=== PATIENT | female | born 1945 | race American Indian/Alaskan Native ===

== ENCOUNTER 2017-03-24 11:15 | Inpatient (IN) | payer MEDICARE ==
[2017-03-24] MEDS ORDERED: UNASYN/NS 3 GM/100 ML 3 GM/100 ML BAG IV ONE (12:10)
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
--- NOTE | 2017-03-24 12:41 | Admit Criteria Form ---
Admission Criteria Documentation: CELLULITIS Clinical Indications for Admission to Inpatient Care (Place 'X' for any and all applicable criteria): Admission is indicated for ANY ONE of the following(1)(2)(3)(4)(5): [ ]I. Limb-threatening infection [ ]II. High-risk comorbid condition as indicated by ANY ONE of the following: [ ]a) Uncontrolled diabetes (eg, HbA1c greater than 10% (0.1)) [ ]b) Cirrhosis [ ]c) Neutropenia [ ]d) Asplenia [ ]e) Immunosuppression [ ]f) Symptomatic heart failure [ ]III. Failure of outpatient therapy as indicated by ALL of the following: [ ]a) Progression or no improvement after adequate trial (minimum of 48 hours, with longer period for stable lower extremity infection) [ ]b) Adequate antibiotic regimen as indicated by use of ANY ONE of the following: [ ]i) First-generation cephalosporin (e.g., cephalexin) [ ]ii) Antistaphylococcal penicillin (e.g., dicloxacillin) [ ]iii) Penicillin-allergic patient regimen (clindamycin, extended-spectrum fluoroquinolone, or doxycycline) [ ]iv) Resistant organism (eg, methicillin-resistant Staphylococcus aureus) regimen (6) [ ]c) Outpatient intravenous therapy regimen is not appropriate due to ANY ONE of the following. (7)(8)(9)(10): [ ]i) It was tried and was not successful (eg, progression of infection). [ ]ii) It is not available or cannot be arranged in a clinically appropriate time frame (e.g., the next day). [ ]iii) Clinical presentation (eg, acuity of infection, rapidity of progression, confirmed or suspected bacteremia) is judged to require ALL of the following: [ ]1) Immediate initiation of intravenous therapy ( eg, cannot wait for next day) [ ]2) Intensity of patient monitoring and observation (eg, vital sign measurement, checks for infection progression) that cannot be provided at other than inpatient level of care [ ]IV. Mental status changes [ ]V. Bacteremia [ ]. Hemodynamic instability [ ]VII. Suspected necrotizing soft tissue infection (e.g., gas in tissue)(11)( 12) [ ]VIII. Orbital infection (13)(14) [ ]IX. Associated surgical procedure (e.g., abscess drainage, debridement) not amenable to outpatient, emergency department, or observation care [ ]X. Cutaneous gangrene [ ]XI. High fever (temperature greater than 39.5 degrees C (103.1 degrees F) (oral)) not responsive to outpatient, emergency department, or observation care therapy [X ]XIII. Inpatient admission required rather than observation care (Also use Cellulitis: Observation Care as appropriate) because of ANY ONE of the following : [ ]a) Periorbital or perineal infection that is severe or worsening [ ]b) Severe pain requiring acute inpatient management [ ]c) IV fluid to replace significant ongoing (e.g., for over 24 hours) losses (greater than 3L/m2 per day) [ ]d) Compartment syndrome monitoring (17) [ ]e) Strict or protective (eg, laminar flow) isolation [ ]f) Urgent debridement or skin grafting [ ]g) Bone or joint debridement [ ]h) Immediate inpatient surgery [X ]i) Other condition, treatment or monitoring requiring inpatient admission Extended stay beyond goal length of stay may be needed for (1)(18): [ ]a) Necrotizing soft tissue infection or fasciitis [ ]b) Gram-negative infection [ ]c) Methicillin-resistant Staphylococcal aureus (MRSA) infection [ ]d) Peripheral venous insufficiency with cellulitis [ ]e) Extensive edema [ ]f) Sepsis or continued Hemodynamic instability [ ]g) Continued high fever or mental status change [ ]h) Bacteremia [ ]i) Active serious comorbid conditions ( eg, heart failure, renal insufficiency) The original [facility] content created by [employer] has been revised. The portions of the content which have been revised are identified through the use of italic text or in bold, and [facility] has neither reviewed nor approved the modified material. All other unmodified content is copyright [facility] [employer] Please see references footnoted in the original [facility] [employer] edition 2016 Admission Criteria Met: Yes
[2017-03-24 14:19] LABS: Alanine Aminotransferase 9 units/L (7-56); Albumin 2.9 g/dL (3.9-5); Albumin/Globulin Ratio 0.5 %; Alkaline Phosphatase 133 units/L (35-129); Anion Gap 21 mmol/L; BUN/Creatinine Ratio 13.75; Blood Urea Nitrogen 11 mg/dL (7-17); Calcium 9.4 mg/dL (8.4-10.2); Carbon Dioxide 21 mmol/L (22-30); Chloride 104.7 mmol/L (98-107); Glucose 123 mg/dL (65-100); Potassium 4.4 mmol/L (3.6-5.0); Sodium 142 mmol/L (137-145); Total Protein 8.2 g/dL (6.3-8.2)
[2017-03-24 14:46] LABS: Hemoglobin 11.3 gm/dl (10.1-14.3); Mean Corpuscular HGB Conc 31 % (30-34); Mean Corpuscular Volume 82 fl (79-97); Platelet Count 260 K/mm3 (140-440); Red Blood Count 4.37 M/mm3 (3.65-5.03); Red Cell Distribution Width 15.8 % (13.2-15.2); White Blood Count 7.1 K/mm3 (4.5-11.0)
[2017-03-24 14:50] LABS: Mean Corpuscular Hemoglobin 26 pg (28-32)
[2017-03-24] MEDS ORDERED: MORPHINE IV ONE (14:53)
--- NOTE | 2017-03-24 15:38 | History and Physical Report ---
History of Present Illness Date of examination: 03/24/17 Date of admission: 03/24/17 15:09 Chief complaint: Right Leg wounds and pain History of present illness: 71-year-old [place] female sent to the ED via EMS from home with complaint of right leg pain due to an open wound located on the inner leg below the knee, from chronic cellulitis and lymphedema. Pt is morbidly obese and stated, she does not ambulate but uses a bedside commode. Patient's past medical history hypertension, chronic bilateral lower extremeties cellulitis & lymphedema, osteoarthritis, cardiac arrest 2012, hysterectomy 1974. Patient denies shortness of breath, dizziness, chest pain, fever, chills, nausea, and vomiting. Past History Past Medical History: acute SC, hypertension, other (Osteoarthritis, Chronic bilateral lower extremeties cellulitis and black hyperkeratosis) Past Surgical History: hysterectomy (1974) Social history: denies: smoking, alcohol abuse, prescription drug abuse Medications and Allergies Allergies Allergy/AdvReac Type Severity Reaction Status Date / Time amlodipine besylate Allergy Shortness Verified 03/24/17 11:47 [From Norvasc] of Breath aspirin Allergy Hives Verified 03/24/17 11:47 atenolol Allergy Shortness Verified 03/24/17 11:47 of Breath atorvastatin calcium Allergy Unknown Verified 03/24/17 11:47 [From Lipitor] azithromycin Allergy Unknown Verified 03/24/17 11:45 bee venom (honey bee) Allergy Anaphylaxis Verified 03/24/17 11:45 ceftriaxone Allergy Unknown Verified 03/24/17 11:45 cephalexin monohydrate Allergy Unknown Verified 03/24/17 11:45 [From Keflex] doxycycline monohydrate Allergy Unknown Verified 03/24/17 11:45 [From Monodox] esomeprazole magnesium Allergy Unknown Verified 03/24/17 11:49 [From Nexium] ibuprofen Allergy Swelling Verified 03/24/17 11:45 latex Allergy Swelling Verified 03/24/17 11:49 levofloxacin [From Levaquin] Allergy Swelling Verified 03/24/17 11:49 lidocaine Allergy Shortness Verified 03/24/17 11:49 of Breath lisinopril Allergy Angioedema Verified 03/24/17 11:47 losartan Allergy Unknown Verified 03/24/17 11:49 metronidazole Allergy Unknown Verified 03/24/17 11:45 moxifloxacin Allergy Unknown Verified 03/24/17 11:45 sulfamethoxazole Allergy BLISTERS Verified 03/24/17 11:47 [From Bactrim] SKIN trimethoprim [From Bactrim] Allergy BLISTERS Verified 03/24/17 11:47 SKIN metformin AdvReac Nausea Verified 03/24/17 11:49 vancomycin AdvReac BLISTERS Verified 03/24/17 11:45 SKIN Home Medications Medication Instructions Recorded Confirmed Last Taken Type Furosemide [Lasix TAB] 40 mg PO QDAY 03/24/17 03/24/17 03/23/17 History Metoprolol [Lopressor] 25 mg PO DAILY 03/24/17 03/24/17 03/24/17 History Ranitidine HCl [Zantac 150 MG TAB] 150 mg PO PRN PRN 03/24/17 03/24/17 Unknown History cloNIDine [Catapres] 0.2 mg PO BID 03/24/17 03/24/17 03/24/17 History oxyCODONE /ACETAMINOPHEN [Percocet 5 - 325 mg PO Q6HR PRN 03/24/17 03/24/1712/09 History 5/325] Review of Systems Constitutional: fever, chills, lethargy Ears, nose, mouth and throat: no nasal congestion, no sinus pressure, no headache Breasts: normal Cardiovascular: no palpitations, no edema, no syncope Gastrointestinal: no abdominal pain, no nausea, no vomiting, no diarrhea, no constipation Genitourinary Female: no dyspareunia, no dysmenorrhea, no stress incontinence Rectal: no incontinence Musculoskeletal: gait dysfunction Integumentary: wounds, darkening of skin, depigmentation, dryness, color changes Neurological: no head injury, no headaches Psychiatric: no anxiety, no sleep disturbances, no paranoia Endocrine: no fatigue Exam - Constitutional Vitals: Temp Pulse Resp BP Pulse Ox 98 F 57 L 18 146/74 95 03/24/17 12:17 03/24/17 12:17 03/24/17 12:17 03/24/17 12:17 03/24/17 12:17 General appearance: Present: no acute distress - EENT Eyes: Present: PERRL ENT: hearing intact, clear oral mucosa - Neck Neck: Present: supple, normal ROM - Respiratory Respiratory effort: normal Respiratory: bilateral: CTA - Cardiovascular Heart Sounds: Present: S1 & S2 - Integumentary Integumentary: Present: warm, dry Body Four View: 1 - From anterior knee down to metatarsals, black hyperkeratosis with open statis wound on the inner leg below the knee measured 3cm x2 cm x 2 depth 2 - From anterior knee down to metatarsals, black leathery hyperkeratosis of the skin 3 - Perforated wound 3x2x2 cm with minimal drainage - Musculoskeletal Musculoskeletal: strength equal bilaterally, other (Bilateral lower extremeties weakness present skin condition) - Psychiatric Psychiatric: intact judgment & insight - Neurologic Neurologic: CNII-XII intact - Allied Health Allied health notes reviewed: nursing, case management Results - Labs CBC & Chem 7: 03/24/17 14:34 03/24/17 12:10 Labs: Laboratory Last Values WBC 7.1 K/mm3 (4.5-11.0) 03/24/17 14:34 RBC 4.37 M/mm3 (3.65-5.03) 03/24/17 14:34 Hgb 11.3 gm/dl (10.1-14.3) 03/24/17 14:34 Hct 36.0 % (30.3-42.9) 03/24/17 14:34 MCV 82 fl (79-97) 03/24/17 14:34 MCH 26 pg (28-32) L 03/24/17 14:34 MCHC 31 % (30-34) 03/24/17 14:34 RDW 15.8 % (13.2-15.2) H 03/24/17 14:34 Plt Count 260 K/mm3 (140-440) 03/24/17 14:34 Lymph % (Auto) [employer] 03/24/17 14:34 [place] % (Auto) [employer]per 03/24/17 14:34 Eos % (Auto) [employer]per 03/24/17 14:34 Baso % (Auto) [employer]per 03/24/17 14:34 Lymph # [employer] 03/24/17 14:34 [place] # [employer] 03/24/17 14:34 Eos # [employer]per 03/24/17 14:34 Baso # [employer]per 03/24/17 14:34 Seg Neutrophils % [employer] 03/24/17 14:34 Seg Neutrophils # [employer]per 03/24/17 14:34 Sodium 142 mmol/L (137-145) 03/24/17 12:10 Potassium 4.4 mmol/L (3.6-5.0) 03/24/17 12:10 Chloride 104.7 mmol/L (98-107) 03/24/17 12:10 Carbon Dioxide 21 mmol/L (22-30) L 03/24/17 12:10 Anion Gap 21 mmol/L 03/24/17 12:10 BUN 11 mg/dL (7-17) 03/24/17 12:10 Creatinine 0.8 mg/dL (0.7-1.2) 03/24/17 12:10 Estimated GFR > 60 ml/min 03/24/17 12:10 BUN/Creatinine Ratio 13.75 % 03/24/17 12:10 Glucose 123 mg/dL (65-100) H 03/24/17 12:10 Calcium 9.4 mg/dL (8.4-10.2) 03/24/17 12:10 Total Bilirubin 0.40 mg/dL (0.1-1.2) 03/24/17 12:10 AST 14 units/L (5-40) 03/24/17 12:10 ALT 9 units/L (7-56) 03/24/17 12:10 Alkaline Phosphatase 133 units/L (35-129) H 03/24/17 12:10 Total Protein 8.2 g/dL (6.3-8.2) 03/24/17 12:10 Albumin 2.9 g/dL (3.9-5) L 03/24/17 12:10 Albumin/Globulin Ratio 0.5 % 03/24/17 12:10 Assessment and Plan Assessment and plan: 71-year-old [place] female sent to the ED via EMS from home with complaint of right leg pain due to statis open wound located on the inner leg below the knee, from chronic cellulitis and lymphedema. Pt is morbidly obese and stated, she does not ambulate but uses a bedside commode. Patient's past medical history of hypertension, chronic bilateral lower extremeties cellulitis & lymphedema, osteoarthritis, cardiac arrest 2012, hysterectomy 1974. Patient denies shortness of breath, dizziness, chest pain, fever, chills, nausea, and vomiting. On exam, patient is alert oriented 3, patient's right lower extremity below the knee inner aspect of her leg is a Malodorous open wound measured 3 x 2 x 2 with drainage noted. Bilateral lower extremities are warm to touch, black hyperkeratosis of the skin noted. 1. Cellulitis - Consult wound care, only Unasyn antibiotic used d/t multiple drug allergies, pain medicine ordered when necessary 2. Morbid Obesity - Due to Pt's immobility, Consult acute rehab 2. Hypertension- continue home meds, metoprolol 25 mg, by mouth, daily and clonidine 0.2 mg, by mouth, twice a day 3. DM 2- A1c level ordered, monitor Accu-Checks, and insulin sliding scale ordered 4. Malnutrition - Consult Dietitian 5. Osteoarthritis- pain medication ordered when necessary 6. DT prophylaxis- Lovenox ordered Advance Directives: Yes VTE prophylaxis?: Chemical Plan of care discussed with patient/family: Yes
[2017-03-24] MEDS ORDERED: DULCOLAX PR PRN (16:07)
[2017-03-24] MEDS ORDERED: TYLENOL PO PRN (16:07)
[2017-03-24] MEDS ORDERED: ZOFRAN IV PRN (16:07)
[2017-03-24] MEDS ORDERED: MILK OF MAGNESIA PO PRN (16:07)
[2017-03-24] MEDS ORDERED: D50W (25GM) IV PRN (16:17)
--- NOTE | 2017-03-24 17:44 | Consultation ---
History of Present Illness - Reason for Consult Consult date: 03/24/17 Evaluate for Acute IRU - History of Present Illness 71 y.o. morbidly obese female who presented to [facility] ED from her PCP due to foul odor from RLE wound. Pt states wound has been present since November after having a DVT in RLE; followed at the wound care center and was last seen on Monday, 03/22. On today, she states that she had a visit with her PCP where he noted the wound was foul smelling and recommended that she be admitted for more aggressive treatment. Pt also has limited ambulation; uses RW within home to go to the bathroom. Consult requested due to gait dysfunction. Past History Past Medical History: acute PA, hypertension, other (Osteoarthritis, Chronic bilateral lower extremeties cellulitis and black hyperkeratosis) Past Surgical History: hysterectomy (1974), tonsillectomy Social history: denies: smoking, alcohol abuse Family history: diabetes, hypertension Medications and Allergies Allergies Allergy/AdvReac Type Severity Reaction Status Date / Time amlodipine besylate Allergy Shortness Verified 03/24/17 11:47 [From Norvasc] of Breath aspirin Allergy Hives Verified 03/24/17 11:47 atenolol Allergy Shortness Verified 03/24/17 11:47 of Breath atorvastatin calcium Allergy Unknown Verified 03/24/17 11:47 [From Lipitor] azithromycin Allergy Unknown Verified 03/24/17 11:45 bee venom (honey bee) Allergy Anaphylaxis Verified 03/24/17 11:45 ceftriaxone Allergy Unknown Verified 03/24/17 11:45 cephalexin monohydrate Allergy Unknown Verified 03/24/17 11:45 [From Keflex] doxycycline monohydrate Allergy Unknown Verified 03/24/17 11:45 [From Monodox] esomeprazole magnesium Allergy Unknown Verified 03/24/17 11:49 [From Nexium] ibuprofen Allergy Swelling Verified 03/24/17 11:45 latex Allergy Swelling Verified 03/24/17 11:49 levofloxacin [From Levaquin] Allergy Swelling Verified 03/24/17 11:49 lidocaine Allergy Shortness Verified 03/24/17 11:49 of Breath lisinopril Allergy Angioedema Verified 03/24/17 11:47 losartan Allergy Unknown Verified 03/24/17 11:49 metronidazole Allergy Unknown Verified 03/24/17 11:45 moxifloxacin Allergy Unknown Verified 03/24/17 11:45 sulfamethoxazole Allergy BLISTERS Verified 03/24/17 11:47 [From Bactrim] SKIN trimethoprim [From Bactrim] Allergy BLISTERS Verified 03/24/17 11:47 SKIN metformin AdvReac Nausea Verified 03/24/17 11:49 vancomycin AdvReac BLISTERS Verified 03/24/17 11:45 SKIN Home Medications Medication Instructions Recorded Confirmed Last Taken Type Furosemide [Lasix TAB] 40 mg PO QDAY 03/24/17 03/24/17 03/23/17 History Metoprolol [Lopressor] 25 mg PO DAILY 03/24/17 03/24/17 03/24/17 History Ranitidine HCl [Zantac 150 MG TAB] 150 mg PO PRN PRN 03/24/17 03/24/17 Unknown History cloNIDine [Catapres] 0.2 mg PO BID 03/24/17 03/24/17 03/24/17 History oxyCODONE /ACETAMINOPHEN [Percocet 5 - 325 mg PO Q6HR PRN 03/24/17 03/24/1712/09 History 5/325] Active Meds: Active Medications Acetaminophen (Tylenol) 650 mg PO Q4H PRN PRN Reason: Pain MILD(1-3)/Fever >100.5/JONES Bisacodyl (Dulcolax) 10 mg MT QDAY PRN PRN Reason: Constipation unrelieved by MOM Clonidine HCl (Catapres) 0.2 mg PO BID FELICIANO Dextrose (D50w (25gm)) 50 ml IV PRN PRN PRN Reason: Hypoglycemia Enoxaparin Sodium (Lovenox) 40 mg SUB-Q QDAY@2200 FELICIANO Famotidine (Pepcid) 20 mg IV BID FELICIANO Furosemide (Lasix) 40 mg PO QDAY FELICIANO Ampicillin Sodium/Sulbactam Sodium (Unasyn/Ns 3 Gm/100 Ml) 3 gm in 100 mls @ 100 mls/hr IV Q6HR FELICIANO PRN Reason: Protocol Insulin Aspart (Novolog) 0 units SUB-Q ACHS FELICIANO PRN Reason: Protocol Magnesium Hydroxide (Milk Of Magnesia) 30 ml PO Q4H PRN PRN Reason: Constipation Metoprolol Tartrate (Lopressor) 25 mg PO DAILY FELICIANO Ondansetron HCl (Zofran) 4 mg IV Q8H PRN PRN Reason: N/V unrelieved by Reglan Review of Systems All systems: negative Constitutional: poor appetite Ears, nose, mouth and throat: no headache Cardiovascular: no chest pain Respiratory: no cough Gastrointestinal: no abdominal pain, no nausea, no vomiting Musculoskeletal: gait dysfunction Exam - Constitutional Vitals: Vital Signs - 12hr 03/24/17 03/24/17 03/24/17 15:10 15:20 15:30 Temperature Pulse Rate Respiratory Rate Blood Pressure 151/64 151/64 161/83 Blood Pressure [Right] O2 Sat by Pulse 99 99 97 Oximetry 03/24/17 03/24/17 03/24/17 15:40 15:50 16:00 Temperature Pulse Rate Respiratory Rate Blood Pressure 161/83 161/83 134/68 Blood Pressure [Right] O2 Sat by Pulse 98 97 97 Oximetry 03/24/17 03/24/17 16:10 16:41 Temperature 97.9 F Pulse Rate 60 Respiratory 16 Rate Blood Pressure 134/68 Blood Pressure 134/68 [Right] O2 Sat by Pulse 95 94 Oximetry General appearance: no acute distress, obese - EENT Eyes: EOM intact ENT: hearing intact - Neck Neck: supple, normal ROM - Respiratory Respiratory effort: normal Respiratory: bilateral: CTA - Cardiovascular Rhythm: regular Heart Sounds: Present: S1 & S2 - Extremities Extremity abnormal: edema (BLE; lymphedema) - Gastrointestinal General gastrointestinal: Present: soft, non-tender, normal bowel sounds - Musculoskeletal Musculoskeletal: generalized weakness (2/5 BLE; dressing to right posterior lower leg) - Neurologic Neurologic: CNII-XII intact - Psychiatric Psychiatric: appropriate mood/affect, intact judgment & insight, memory intact, cooperative - Labs CBC & Chem 7: 03/24/17 14:34 03/24/17 12:10 Assessment and Plan Patient was assessed and evaluated for Acute Inpatient Rehab Unit. 71 y.o. morbidly obese female just up from the ED with nonhealing wound at RLE; pending ongoing work-up, wound care. PT consult placed for mobility. Pt is with limited ambulation within the home. Will follow for post-acute recommendations when medically stable. Thank you for consultation. - Patient Problems (1) Open wounds involving multiple regions of lower extremity Current Visit: Yes Status: Acute (2) Lymphedema Current Visit: Yes Status: Acute (3) Morbid (severe) obesity due to excess calories Current Visit: Yes Status: Acute (4) HTN (hypertension) Current Visit: Yes Status: Chronic Qualifiers: Hypertension type: essential hypertension Qualified Code(s): I10 - Essential (primary) hypertension
[2017-03-24] MEDS ORDERED: LOVENOX SUB-Q SCH (22:00)
[2017-03-24] MEDS: UNASYN/NS 3 GM/100 ML 3 GM/100 ML BAG IV SCH (23:12)
[2017-03-24] MEDS: BENADRYL IV PRN (23:13)
[2017-03-24] MEDS: CATAPRES PO SCH (23:13)
[2017-03-24] MEDS: PEPCID IV SCH (23:13)
[2017-03-24] MEDS: MORPHINE IV PRN (23:14)
[2017-03-25] MEDS: UNASYN/NS 3 GM/100 ML 3 GM/100 ML BAG IV SCH ×4 (01:53→18:31)
[2017-03-25] MEDS: MORPHINE IV PRN (06:08)
[2017-03-25] MEDS: BENADRYL IV PRN (06:09)
[2017-03-25] MEDS ORDERED: APRESOLINE IV PRN (06:57)
[2017-03-25] MEDS: NOVOLOG SUB-Q SCH ×6 (07:55→22:02)
[2017-03-25 08:06] LABS: Basophils % (Auto) 0.5 % (0.0-1.8); Eosinophils % (Auto) 2.2 % (0.0-4.3); Hematocrit 30.6 % (30.3-42.9); Hemoglobin 9.6 gm/dl (10.1-14.3); Mean Corpuscular HGB Conc 31 % (30-34); Mean Corpuscular Volume 81 fl (79-97); Platelet Count 257 K/mm3 (140-440); Red Blood Count 3.76 M/mm3 (3.65-5.03); Red Cell Distribution Width 16.1 % (13.2-15.2); White Blood Count 5.9 K/mm3 (4.5-11.0)
[2017-03-25 08:24] LABS: Anion Gap 13 mmol/L; BUN/Creatinine Ratio 12.85; Blood Urea Nitrogen 9 mg/dL (7-17); Calcium 8.7 mg/dL (8.4-10.2); Carbon Dioxide 27 mmol/L (22-30); Chloride 102.1 mmol/L (98-107); Glucose 136 mg/dL (65-100); Sodium 138 mmol/L (137-145)
[2017-03-25 08:43] LABS: Mean Corpuscular Hemoglobin 25 pg (28-32)
--- NOTE | 2017-03-25 09:10 | Progress Note ---
Assessment and Plan Assessment and plan: Patient is a 71-year-old woman who lives at home with history of morbid obesity BMI 60.6, functional quadriplegia, hypertension, , OA, cardiac arrest in 2013, chronic severe bilateral leg venous stasis ulcers with hyperkeratosis and lymphedemawho presents with right leg pain and open wound medial right leg/ posterior knee -Acute right leg cellulitis with open wound most likely from pressure ulcer due to lack of mobility: iv abx, wound care, -Functional quadriplegia due to morbid obesity and comorbidities: Rehabilitation consult placed, PT evaluation pending -Accelerated hypertension: Added when necessary IV hydralazine -Now new onset type 2 diabetes mellitus, A1c 8.1, patient denies history of diabetes mellitus (she has been pre-dm): Sliding scale insulin and start metformin -Morbid obesity: Counseling lifestyle modification changes including weight loss -Moderate malnutrition, albumin 2.9: Dietary follow-up -DVT prophylaxis: SCDs and subcutaneous heparin (stopped lovenox due to weight) full code History Interval history: Patient seen and examined. Follow up on her leg pain which still present. Overnight uneventful. No cp, sob, n/v or severe headaches. Imaging, old records , testing, labs, nursing notes reviewed. Hospitalist Physical - Physical exam Narrative exam: GEN: WDWN, morbid obesity BMI 60.6, NAD, AWAKE, ALERT, ORIENTATED x 3 HEENT: NCAT, PERRL, EOMI, OP CLEAR NECK: SUPPLE, NO THYROMEGALY, NO JVD, NO LAD CVS: RRR, NORMAL S1S2 LUNGS/CHEST: CTA B, NORMAL CHEST EXPANSION B, GOOD AIR ENTRY B ABD: SOFT, NTND, GBS, NO REBOUND OR GUARDING EXT/SKIN: Significant bilateral lymphedema with hyperpigmented chronic venous stasis changes, open wound is draining popliteal area MSK: FROM X 4 EXTREMITIES NEURO: CN 2-12 GROSSLY INTACT, NO FOCAL DEFICITS PSY: CALM - Constitutional Vitals: Temp Pulse Resp BP Pulse Ox 98.8 F 61 20 184/84 100 03/24/17 23:00 03/24/17 23:13 03/25/17 06:08 03/24/17 23:13 03/24/17 23:00 General appearance: Present: no acute distress Results - Labs CBC & Chem 7: 03/25/17 06:51 03/25/17 06:51 Labs: Laboratory Last Values WBC 5.9 K/mm3 (4.5-11.0) 03/25/17 06:51 RBC 3.76 M/mm3 (3.65-5.03) 03/25/17 06:51 Hgb 9.6 gm/dl (10.1-14.3) L 03/25/17 06:51 Hct 30.6 % (30.3-42.9) 03/25/17 06:51 MCV 81 fl (79-97) 03/25/17 06:51 MCH 25 pg (28-32) L 03/25/17 06:51 MCHC 31 % (30-34) 03/25/17 06:51 RDW 16.1 % (13.2-15.2) H 03/25/17 06:51 Plt Count 257 K/mm3 (140-440) 03/25/17 06:51 Lymph % (Auto) 35.7 % (13.4-35.0) H 03/25/17 06:51 [place] % (Auto) 10.9 % (0.0-7.3) H 03/25/17 06:51 Eos % (Auto) 2.2 % (0.0-4.3) 03/25/17 06:51 Baso % (Auto) 0.5 % (0.0-1.8) 03/25/17 06:51 Lymph # 2.1 K/mm3 (1.2-5.4) 03/25/17 06:51 [place] # 0.6 K/mm3 (0.0-0.8) 03/25/17 06:51 Eos # 0.1 K/mm3 (0.0-0.4) 03/25/17 06:51 Baso # 0.0 K/mm3 (0.0-0.1) 03/25/17 06:51 Seg Neutrophils % 50.7 % (40.0-70.0) 03/25/17 06:51 Seg Neutrophils # 3.0 K/mm3 (1.8-7.7) 03/25/17 06:51 Sodium 138 mmol/L (137-145) 03/25/17 06:51 Potassium 4.0 mmol/L (3.6-5.0) 03/25/17 06:51 Chloride 102.1 mmol/L (98-107) 03/25/17 06:51 Carbon Dioxide 27 mmol/L (22-30) 03/25/17 06:51 Anion Gap 13 mmol/L 03/25/17 06:51 BUN 9 mg/dL (7-17) 03/25/17 06:51 Creatinine 0.7 mg/dL (0.7-1.2) 03/25/17 06:51 Estimated GFR > 60 ml/min 03/25/17 06:51 BUN/Creatinine Ratio 12.85 % 03/25/17 06:51 Glucose 136 mg/dL (65-100) H 03/25/17 06:51 POC Glucose 160 (70-105) H 03/25/17 06:02 Hemoglobin A1c 8.1 % (4-6) H 03/24/17 14:34 Calcium 8.7 mg/dL (8.4-10.2) 03/25/17 06:51 Total Bilirubin 0.40 mg/dL (0.1-1.2) 03/24/17 12:10 AST 14 units/L (5-40) 03/24/17 12:10 ALT 9 units/L (7-56) 03/24/17 12:10 Alkaline Phosphatase 133 units/L (35-129) H 03/24/17 12:10 Total Protein 8.2 g/dL (6.3-8.2) 03/24/17 12:10 Albumin 2.9 g/dL (3.9-5) L 03/24/17 12:10 Albumin/Globulin Ratio 0.5 % 03/24/17 12:10
[2017-03-25] MEDS: LASIX PO SCH (12:03)
[2017-03-25] MEDS: LOPRESSOR PO SCH (12:04)
[2017-03-25] MEDS: PEPCID IV SCH ×2 (12:05→21:49)
[2017-03-25] MEDS: CATAPRES PO SCH ×2 (12:06→21:49)
[2017-03-26] MEDS: UNASYN/NS 3 GM/100 ML 3 GM/100 ML BAG IV SCH ×4 (00:17→18:19)
[2017-03-26] MEDS: MORPHINE IV PRN ×3 (03:14→15:07)
[2017-03-26] MEDS: NOVOLOG SUB-Q SCH ×4 (07:36→21:47)
--- NOTE | 2017-03-26 07:52 | Progress Note ---
Assessment and Plan Assessment and plan: Patient is a 71-year-old woman who lives at home with history of morbid obesity BMI 60.6, functional quadriplegia, hypertension, , OA, cardiac arrest in 2012, chronic severe bilateral leg venous stasis ulcers with hyperkeratosis and lymphedema who presents with right leg pain and open wound medial right leg/ posterior knee -Acute right leg cellulitis with open wound most likely from pressure ulcer due to lack of mobility: iv abx, wound care Eval pending. OBTAIN CT THIGH TO EVAL FOR ABSCESS. CONTINUE abx. U/S eval for DVT -Functional quadriplegia due to morbid obesity and comorbidities: Rehabilitation consult placed AND INPUT noted, PT evaluation pending. wheel chair bound since 2016 -HTN urgency: Added when necessary IV hydralazine -Now new onset type 2 diabetes mellitus, A1c 8.1, patient denies history of diabetes mellitus (she has been pre-dm): Sliding scale insulin and start metformin, MONITOR RENAL FUNCTION. -Morbid obesity: Counseling lifestyle modification changes including weight loss -Moderate malnutrition, albumin 2.9: Dietary follow-up -DVT prophylaxis: SCDs and subcutaneous heparin (stopped lovenox due to weight) Plan of care discussed with patient in detail full code History Interval history: Patient seen and examined today in no acute distress, still with chronic pain in the lower ext. Hospitalist Physical - Physical exam Narrative exam: VITAL SIGNS: Reviewed. GENERAL: The patient appeared well nourished and normally developed obese and bed bound. Vital signs as documented. HEAD: No signs of head trauma. EYES: Pupils are equal. Extraocular motions intact. EARS: Hearing grossly intact. MOUTH: Oropharynx is normal. NECK: No adenopathy, no JVD. CHEST: Chest with clear breath sounds bilaterally. No wheezes, rales, or rhonchi. CARDIAC: Regular rate and rhythm. S1 and S2, without murmurs, gallops, or rubs. VASCULAR: No Edema. Peripheral pulses normal and equal in all extremities. ABDOMEN: Soft, without detectable tenderness. No sign of distention. No rebound or guarding, and no masses palpated. Bowel Sounds normal. MUSCULOSKELETAL: LIMITED RANGE of motion, Good range of motion of all major joints. Extremities without clubbing, EDEMA, HYPOPIGMENTED AREAS IN THE RIGHT ANKLE AREA. NEUROLOGIC EXAM: Alert and oriented x 3. No focal sensory or strength deficits. Speech normal. Follows commands. PSYCHIATRIC: Mood normal. SKIN: Significant Bilateral Lymphedema with hyperpigmented chronic venous stasis changes, open wound is draining popliteal area - Constitutional Vitals: Temp Pulse Resp BP Pulse Ox 98.0 F 52 L 18 148/79 99 03/26/17 00:28 03/26/17 00:28 03/26/17 00:28 03/26/17 00:28 03/26/17 00:28 General appearance: Present: no acute distress Results - Labs CBC & Chem 7: 03/26/17 08:37 03/26/17 08:37 Labs: Laboratory Last Values WBC 5.9 K/mm3 (4.5-11.0) 03/25/17 06:51 RBC 3.76 M/mm3 (3.65-5.03) 03/25/17 06:51 Hgb 9.6 gm/dl (10.1-14.3) L 03/25/17 06:51 Hct 30.6 % (30.3-42.9) 03/25/17 06:51 MCV 81 fl (79-97) 03/25/17 06:51 MCH 25 pg (28-32) L 03/25/17 06:51 MCHC 31 % (30-34) 03/25/17 06:51 RDW 16.1 % (13.2-15.2) H 03/25/17 06:51 Plt Count 257 K/mm3 (140-440) 03/25/17 06:51 Lymph % (Auto) 35.7 % (13.4-35.0) H 03/25/17 06:51 [place] % (Auto) 10.9 % (0.0-7.3) H 03/25/17 06:51 Eos % (Auto) 2.2 % (0.0-4.3) 03/25/17 06:51 Baso % (Auto) 0.5 % (0.0-1.8) 03/25/17 06:51 Lymph # 2.1 K/mm3 (1.2-5.4) 03/25/17 06:51 [place] # 0.6 K/mm3 (0.0-0.8) 03/25/17 06:51 Eos # 0.1 K/mm3 (0.0-0.4) 03/25/17 06:51 Baso # 0.0 K/mm3 (0.0-0.1) 03/25/17 06:51 Seg Neutrophils % 50.7 % (40.0-70.0) 03/25/17 06:51 Seg Neutrophils # 3.0 K/mm3 (1.8-7.7) 03/25/17 06:51 Sodium 138 mmol/L (137-145) 03/25/17 06:51 Potassium 4.0 mmol/L (3.6-5.0) 03/25/17 06:51 Chloride 102.1 mmol/L (98-107) 03/25/17 06:51 Carbon Dioxide 27 mmol/L (22-30) 03/25/17 06:51 Anion Gap 13 mmol/L 03/25/17 06:51 BUN 9 mg/dL (7-17) 03/25/17 06:51 Creatinine 0.7 mg/dL (0.7-1.2) 03/25/17 06:51 Estimated GFR > 60 ml/min 03/25/17 06:51 BUN/Creatinine Ratio 12.85 % 03/25/17 06:51 Glucose 136 mg/dL (65-100) H 03/25/17 06:51 POC Glucose 142 (70-105) H 03/26/17 06:19 Hemoglobin A1c 8.1 % (4-6) H 03/24/17 14:34 Calcium 8.7 mg/dL (8.4-10.2) 03/25/17 06:51 Total Bilirubin 0.40 mg/dL (0.1-1.2) 03/24/17 12:10 AST 14 units/L (5-40) 03/24/17 12:10 ALT 9 units/L (7-56) 03/24/17 12:10 Alkaline Phosphatase 133 units/L (35-129) H 03/24/17 12:10 Total Protein 8.2 g/dL (6.3-8.2) 03/24/17 12:10 Albumin 2.9 g/dL (3.9-5) L 03/24/17 12:10 Albumin/Globulin Ratio 0.5 % 03/24/17 12:10
[2017-03-26] MEDS: HEPARIN SUB-Q SCH ×3 (09:27→21:41)
[2017-03-26] MEDS: PEPCID IV SCH ×2 (09:27→21:41)
[2017-03-26 09:28] LABS: Mean Corpuscular HGB Conc 30 % (30-34); Mean Corpuscular Volume 85 fl (79-97); Platelet Count 232 K/mm3 (140-440); Red Blood Count 3.91 M/mm3 (3.65-5.03); Red Cell Distribution Width 16.8 % (13.2-15.2); White Blood Count 5.2 K/mm3 (4.5-11.0)
[2017-03-26] MEDS: LOPRESSOR PO SCH (09:28)
[2017-03-26] MEDS: CATAPRES PO SCH ×2 (09:28→21:40)
[2017-03-26] MEDS: LASIX PO SCH (09:28)
[2017-03-26 09:29] LABS: Mean Corpuscular Hemoglobin 26 pg (28-32)
[2017-03-26 10:00] LABS: Anion Gap 19 mmol/L; BUN/Creatinine Ratio 11.25; Blood Urea Nitrogen 9 mg/dL (7-17); Calcium 8.8 mg/dL (8.4-10.2); Carbon Dioxide 23 mmol/L (22-30); Chloride 100.5 mmol/L (98-107); Glucose 110 mg/dL (65-100); Potassium 4.4 mmol/L (3.6-5.0); Sodium 138 mmol/L (137-145)
[2017-03-26] MEDS ORDERED: APRESOLINE IV PRN (13:00)
[2017-03-26] MEDS ORDERED: NITROSTAT SL PRN (16:46)
[2017-03-26] MEDS: BENADRYL IV PRN (16:54)
--- NOTE | 2017-03-26 17:29 | Cat Scan Report ---
FINAL REPORT PROCEDURE: CT bilateral lower extremities without contrast TECHNIQUE: Computerized axial tomography the bilateral lower extremities involving the thighs without contrast HISTORY: eval for abscess in BOTH thighS COMPARISON: No prior studies are available for comparison. FINDINGS: The evaluation is slightly limited due to the patient's body habitus. The evaluation is performed from the upper groin region and through the distal femoral region. Concentration is in the medial thigh soft tissues. The osseous structures appear intact without fracture. The bone mineralization is normal. There is narrowing of the hip joint spaces. There are few enlarged lymph nodes identified in both groin regions. These measure up to 3 centimeters. There is a diffuse inflammatory process identified in the medial thigh soft tissues involving the region of the mid femur down to the distal femoral region. The exam does not include the entire length of this involvement. This appears to be slightly more prominent on the right than on the left. The findings will be consistent with advanced cellulitis. In the medial posterior distal right thigh soft tissues there is an ulceration. There is no formed fluid collection or formed abscess on this study. The findings are most consistent with a diffuse cellulitis. There is some thickening of the skin involving these medial and medial posterior regions of the distal thighs. There appears to be some extension of this process distally. The examination does not extend below the knee. The cellulitis is identified within the superficial soft tissue layers. The deep fascia layers are maintained on this study. IMPRESSION: Diffuse soft tissue cellulitis involving the medial thighs bilaterally, this is more pronounced on the right than the left. A soft tissue ulceration in the distal medial posterior right thigh region is noted. No formed fluid collection or formed abscess is seen on this study.
[2017-03-27] MEDS: UNASYN/NS 3 GM/100 ML 3 GM/100 ML BAG IV SCH ×4 (00:14→18:22)
[2017-03-27] MEDS: BENADRYL IV PRN ×2 (05:30→21:03)
[2017-03-27] MEDS: HEPARIN SUB-Q SCH ×3 (05:31→21:08)
[2017-03-27] MEDS: MORPHINE IV PRN ×3 (05:31→21:03)
--- NOTE | 2017-03-27 07:43 | Vascular Lab Report ---
LOWER EXTREMITY VENOUS DUPLEX: REASON FOR EXAM: Leg edema or. COMMENTS ON THE RIGHT: All veins visualized are freely compressible without evidence of internal echogenicity. Flow is spontaneous and phasic throughout. COMMENTS ON THE LEFT: All veins visualized are freely compressible without evidence of internal echogenicity. Flow is spontaneous and phasic throughout. IMPRESSION: No evidence of acute or chronic deep venous thrombosis in either lower extremity.
[2017-03-27] MEDS: NOVOLOG SUB-Q SCH ×4 (08:05→22:37)
--- NOTE | 2017-03-27 08:13 | Progress Note ---
Assessment and Plan Assessment and plan: Patient is a 71-year-old woman who lives at home with history of morbid obesity BMI 60.6, functional quadriplegia, hypertension, , OA, cardiac arrest in 2012, chronic severe bilateral leg venous stasis ulcers with hyperkeratosis and lymphedema who presents with right leg pain and open wound medial right leg/ posterior knee -Acute right leg cellulitis with open wound most likely from pressure ulcer due to lack of mobility: iv abx, wound care Eval pending. CT shows extensive cellulitis, patient is afebrile, will check CRP AND ESR. -RLE Ulcer- As noted above -Functional quadriplegia due to morbid obesity and comorbidities: Rehabilitation consult placed AND INPUT noted, PT evaluation pending. wheel chair bound since 2016 -HTN urgency: pt states she is allergic to Hydralazine. multiple allergies, will add Isosorbide and adjust. She is tolerant to Nitro. -Exertional dyspnea- chronic, will check Echo. She states it resolves with Nitro -Now new onset type 2 diabetes mellitus, A1c 8.1, patient denies history of diabetes mellitus (she has been pre-dm): Sliding scale insulin and start metformin, MONITOR RENAL FUNCTION. -Morbid obesity: Counseling lifestyle modification changes including weight loss -Moderate malnutrition, albumin 2.9: Dietary follow-up -DVT prophylaxis: SCDs and subcutaneous heparin (stopped lovenox due to weight) Plan of care discussed with patient in detail full code Disposition: Is quite difficult to determine improvement in cellulitis with this patient. I think following the CRP and ESR and he'll wait to do this. I recommended CRP and ESR patient subsequently discharged. She wanted to go home and multiple rehabilitation. Also discussed this with his management. History Interval history: Patient seen and examined today in no acute distress, still with chronic pain in the lower ext. patient reports exertional dyspnea at home without chest pain. No other adverse event noted. she states she takes Nitro for it. Hospitalist Physical - Physical exam Narrative exam: VITAL SIGNS: Reviewed. GENERAL: The patient appeared well nourished and normally developed obese and bed bound. Vital signs as documented. HEAD: No signs of head trauma. EYES: Pupils are equal. Extraocular motions intact. EARS: Hearing grossly intact. MOUTH: Oropharynx is normal. NECK: No adenopathy, no JVD. CHEST: Chest with clear breath sounds bilaterally. No wheezes, rales, or rhonchi. CARDIAC: Regular rate and rhythm. S1 and S2, without murmurs, gallops, or rubs. VASCULAR: No Edema. Peripheral pulses normal and equal in all extremities. ABDOMEN: Soft, without detectable tenderness. No sign of distention. No rebound or guarding, and no masses palpated. Bowel Sounds normal. MUSCULOSKELETAL: LIMITED RANGE of motion, Good range of motion of all major joints. Extremities without clubbing, EDEMA, HYPOPIGMENTED AREAS IN THE RIGHT ANKLE AREA. NEUROLOGIC EXAM: Alert and oriented x 3. No focal sensory or strength deficits. Speech normal. Follows commands. PSYCHIATRIC: Mood normal. SKIN: Significant Bilateral Lymphedema with hyperpigmented chronic venous stasis changes, open wound is draining popliteal area - Constitutional Vitals: Temp Pulse Resp BP Pulse Ox 98.8 F 52 L 18 178/83 100 03/27/17 00:00 03/27/17 00:00 03/27/17 00:00 03/26/17 21:40 03/27/17 00:00 General appearance: Present: no acute distress Results - Labs CBC & Chem 7: 03/26/17 08:37 03/26/17 08:37 Labs: Laboratory Last Values WBC 5.2 K/mm3 (4.5-11.0) 03/26/17 08:37 RBC 3.91 M/mm3 (3.65-5.03) 03/26/17 08:37 Hgb 10.0 gm/dl (10.1-14.3) L 03/26/17 08:37 Hct 33.0 % (30.3-42.9) 03/26/17 08:37 MCV 85 fl (79-97) D 03/26/17 08:37 MCH 26 pg (28-32) L 03/26/17 08:37 MCHC 30 % (30-34) 03/26/17 08:37 RDW 16.8 % (13.2-15.2) H 03/26/17 08:37 Plt Count 232 K/mm3 (140-440) 03/26/17 08:37 Lymph % (Auto) 35.7 % (13.4-35.0) H 03/25/17 06:51 [place] % (Auto) 10.9 % (0.0-7.3) H 03/25/17 06:51 Eos % (Auto) 2.2 % (0.0-4.3) 03/25/17 06:51 Baso % (Auto) 0.5 % (0.0-1.8) 03/25/17 06:51 Lymph # 2.1 K/mm3 (1.2-5.4) 03/25/17 06:51 [place] # 0.6 K/mm3 (0.0-0.8) 03/25/17 06:51 Eos # 0.1 K/mm3 (0.0-0.4) 03/25/17 06:51 Baso # 0.0 K/mm3 (0.0-0.1) 03/25/17 06:51 Seg Neutrophils % 50.7 % (40.0-70.0) 03/25/17 06:51 Seg Neutrophils # 3.0 K/mm3 (1.8-7.7) 03/25/17 06:51 Sodium 138 mmol/L (137-145) 03/26/17 08:37 Potassium 4.4 mmol/L (3.6-5.0) 03/26/17 08:37 Chloride 100.5 mmol/L (98-107) 03/26/17 08:37 Carbon Dioxide 23 mmol/L (22-30) 03/26/17 08:37 Anion Gap 19 mmol/L 03/26/17 08:37 BUN 9 mg/dL (7-17) 03/26/17 08:37 Creatinine 0.8 mg/dL (0.7-1.2) 03/26/17 08:37 Estimated GFR > 60 ml/min 03/26/17 08:37 BUN/Creatinine Ratio 11.25 % 03/26/17 08:37 Glucose 110 mg/dL (65-100) H 03/26/17 08:37 POC Glucose 139 (70-105) H 03/27/17 06:28 Hemoglobin A1c 8.1 % (4-6) H 03/24/17 14:34 Calcium 8.8 mg/dL (8.4-10.2) 03/26/17 08:37 Total Bilirubin 0.40 mg/dL (0.1-1.2) 03/24/17 12:10 AST 14 units/L (5-40) 03/24/17 12:10 ALT 9 units/L (7-56) 03/24/17 12:10 Alkaline Phosphatase 133 units/L (35-129) H 03/24/17 12:10 Total Protein 8.2 g/dL (6.3-8.2) 03/24/17 12:10 Albumin 2.9 g/dL (3.9-5) L 03/24/17 12:10 Albumin/Globulin Ratio 0.5 % 03/24/17 12:10
[2017-03-27] MEDS: CATAPRES PO SCH ×2 (09:47→21:08)
[2017-03-27] MEDS: LOPRESSOR PO SCH (09:47)
[2017-03-27] MEDS: IMDUR PO SCH (09:47)
[2017-03-27] MEDS: PEPCID IV SCH ×2 (09:48→21:05)
[2017-03-27] MEDS: LASIX PO SCH (09:50)
--- NOTE | 2017-03-27 13:59 | Event Note ---
Date: 03/27/17 IPR F/U, gait dysfunction. Therapy evaluation reviewed; pt with limited mobility, min/CGA for transfers and gait (2 feet). Agree with home health at discharge; discussed with CM. Please call for any further questions. Thank you for consultation.
[2017-03-28] MEDS: UNASYN/NS 3 GM/100 ML 3 GM/100 ML BAG IV SCH ×3 (00:44→14:02)
[2017-03-28] MEDS: BENADRYL IV PRN (05:55)
[2017-03-28] MEDS: MORPHINE IV PRN ×2 (05:57→14:02)
[2017-03-28] MEDS: HEPARIN SUB-Q SCH ×2 (05:58→14:02)
[2017-03-28] MEDS: NOVOLOG SUB-Q SCH ×3 (07:15→16:30)
[2017-03-28 09:56] VITALS: BP 163/77
[2017-03-28] MEDS: LASIX PO SCH (10:14)
[2017-03-28] MEDS: CATAPRES PO SCH (10:15)
[2017-03-28] MEDS: IMDUR PO SCH (10:15)
[2017-03-28] MEDS: PEPCID IV SCH (10:16)
[2017-03-28] MEDS: LOPRESSOR PO SCH (10:16)
--- NOTE | 2017-03-28 12:17 | Progress Note ---
Assessment and Plan Assessment and plan: Patient is a 71-year-old woman who lives at home with history of morbid obesity BMI 60.6, functional quadriplegia, hypertension, , OA, cardiac arrest in 2013, chronic severe bilateral leg venous stasis ulcers with hyperkeratosis and lymphedemawho presents with right leg pain and open wound medial right leg/ posterior knee -Acute right leg cellulitis with open wound most likely from pressure ulcer due to lack of mobility: iv abx, wound care, -Functional quadriplegia due to morbid obesity and comorbidities: Rehabilitation consult placed, PT evaluation pending -Accelerated hypertension: Added when necessary IV hydralazine -Now new onset type 2 diabetes mellitus, A1c 8.1, patient denies history of diabetes mellitus (she has been pre-dm): Sliding scale insulin and start metformin -Morbid obesity: Counseling lifestyle modification changes including weight loss -Moderate malnutrition, albumin 2.9: Dietary follow-up -DVT prophylaxis: SCDs and subcutaneous heparin (stopped lovenox due to weight) full code History Interval history: Patient seen and examined. Follow up on her leg pain which still present. Overnight uneventful. No cp, sob, n/v or severe headaches. Imaging, old records , testing, labs, nursing notes reviewed. Hospitalist Physical - Physical exam Narrative exam: GEN: WDWN, morbid obesity BMI 60.6, NAD, AWAKE, ALERT, ORIENTATED x 3 HEENT: NCAT, PERRL, EOMI, OP CLEAR NECK: SUPPLE, NO THYROMEGALY, NO JVD, NO LAD CVS: RRR, NORMAL S1S2 LUNGS/CHEST: CTA B, NORMAL CHEST EXPANSION B, GOOD AIR ENTRY B ABD: SOFT, NTND, GBS, NO REBOUND OR GUARDING EXT/SKIN: Significant bilateral lymphedema with hyperpigmented chronic venous stasis changes, open wound is draining popliteal area MSK: FROM X 4 EXTREMITIES NEURO: CN 2-12 GROSSLY INTACT, NO FOCAL DEFICITS PSY: CALM - Constitutional Vitals: Temp Pulse Resp BP Pulse Ox 97.9 F 54 L 20 163/77 100 03/28/17 09:55 03/28/17 09:55 03/28/17 09:55 03/28/17 09:55 03/28/17 09:55 General appearance: Present: no acute distress Results - Labs CBC & Chem 7: 03/26/17 08:37 03/26/17 08:37 Labs: Laboratory Last Values WBC 5.2 K/mm3 (4.5-11.0) 03/26/17 08:37 RBC 3.91 M/mm3 (3.65-5.03) 03/26/17 08:37 Hgb 10.0 gm/dl (10.1-14.3) L 03/26/17 08:37 Hct 33.0 % (30.3-42.9) 03/26/17 08:37 MCV 85 fl (79-97) D 03/26/17 08:37 MCH 26 pg (28-32) L 03/26/17 08:37 MCHC 30 % (30-34) 03/26/17 08:37 RDW 16.8 % (13.2-15.2) H 03/26/17 08:37 Plt Count 232 K/mm3 (140-440) 03/26/17 08:37 Lymph % (Auto) 35.7 % (13.4-35.0) H 03/25/17 06:51 [place] % (Auto) 10.9 % (0.0-7.3) H 03/25/17 06:51 Eos % (Auto) 2.2 % (0.0-4.3) 03/25/17 06:51 Baso % (Auto) 0.5 % (0.0-1.8) 03/25/17 06:51 Lymph # 2.1 K/mm3 (1.2-5.4) 03/25/17 06:51 [place] # 0.6 K/mm3 (0.0-0.8) 03/25/17 06:51 Eos # 0.1 K/mm3 (0.0-0.4) 03/25/17 06:51 Baso # 0.0 K/mm3 (0.0-0.1) 03/25/17 06:51 Seg Neutrophils % 50.7 % (40.0-70.0) 03/25/17 06:51 Seg Neutrophils # 3.0 K/mm3 (1.8-7.7) 03/25/17 06:51 ESR 63 mm/Hr (0-20) 03/27/17 09:17 Sodium 138 mmol/L (137-145) 03/26/17 08:37 Potassium 4.4 mmol/L (3.6-5.0) 03/26/17 08:37 Chloride 100.5 mmol/L (98-107) 03/26/17 08:37 Carbon Dioxide 23 mmol/L (22-30) 03/26/17 08:37 Anion Gap 19 mmol/L 03/26/17 08:37 BUN 9 mg/dL (7-17) 03/26/17 08:37 Creatinine 0.8 mg/dL (0.7-1.2) 03/26/17 08:37 Estimated GFR > 60 ml/min 03/26/17 08:37 BUN/Creatinine Ratio 11.25 % 03/26/17 08:37 Glucose 110 mg/dL (65-100) H 03/26/17 08:37 POC Glucose 141 (70-105) H 03/28/17 06:39 Hemoglobin A1c 8.1 % (4-6) H 03/24/17 14:34 Calcium 8.8 mg/dL (8.4-10.2) 03/26/17 08:37 Total Bilirubin 0.40 mg/dL (0.1-1.2) 03/24/17 12:10 AST 14 units/L (5-40) 03/24/17 12:10 ALT 9 units/L (7-56) 03/24/17 12:10 Alkaline Phosphatase 133 units/L (35-129) H 03/24/17 12:10 C-Reactive Protein 1.70 mg/dL (0.00-1.30) H 03/28/17 05:58 Total Protein 8.2 g/dL (6.3-8.2) 03/24/17 12:10 Albumin 2.9 g/dL (3.9-5) L 03/24/17 12:10 Albumin/Globulin Ratio 0.5 % 03/24/17 12:10
--- NOTE | 2017-03-28 12:21 | Discharge Summary ---
Providers - Providers Date of Admission: 03/24/17 15:09 Attending physician: MYRA MURPHY 03/24/17 17:00 Consult Acute Rehabilitation [CONS] Routine Consulting Provider: KEKE MINER Reason For Exam: B/L Lower extremeties cellulitis/immobility Consult to Wound/ET Nurse [CONS] Routine Reason For Exam: wound eval 03/24/17 17:21 Physical Therapy Evaluation and Treat [CONS] Routine Comment: Reason For Exam: unsteady gait Primary care physician: ACCOUNT MANAGER B2B Hospitalization Condition: Stable Hospital course: Patient is a 71-year-old woman who lives at home with history of morbid obesity BMI 60.6, functional quadriplegia, hypertension, OA, cardiac arrest in 2013, chronic severe bilateral leg venous stasis ulcers with hyperkeratosis and lymphedema who presents with right leg pain and open wound medial right leg/ posterior knee -Acute right leg cellulitis with open wound most likely from pressure ulcer due to lack of mobility: iv abx, wound care, -Functional quadriplegia due to morbid obesity and comorbidities: Rehabilitation consult placed, PT evaluation done -Accelerated hypertension: Added when necessary IV hydralazine, 2D ECHO showed estimated EF 55-60%, diastolic dysfunction, trace mr, mild tr, RVSP 65mmhg, severe p. hypertension. -Now new onset type 2 diabetes mellitus, A1c 8.1, patient denies history of diabetes mellitus (she has been pre-dm): Sliding scale insulin and start metformin -Morbid obesity: Counseling lifestyle modification changes including weight loss -Moderate malnutrition, albumin 2.9: Dietary follow-up -DVT prophylaxis: SCDs and subcutaneous heparin (stopped lovenox due to weight) full code -Dispo: [facility] once accepted. Disposition: [id number]-[id number] [facility] C[facility] Time spent for discharge: 35 mintes Core Measure Documentation - Palliative Care Palliative Care/ Comfort Measures: Not Applicable - Core Measures Any of the following diagnoses?: none - VTE Discharge Requirements Deep Vein Thrombosis/Pulmonary Embolism Present on Admission: No Has pt received <5 days of overlap therapy or INR<2.0: No Anticoagulant overlap therapy prescribed at discharge: No Contraindication No Overlap Therapy order at DC: Not Indicated Exam - Physical Exam Narrative exam: GEN: WDWN, morbid obesity BMI 60.6, NAD, AWAKE, ALERT, ORIENTATED x 3 HEENT: NCAT, PERRL, EOMI, OP CLEAR NECK: SUPPLE, NO THYROMEGALY, NO JVD, NO LAD CVS: RRR, NORMAL S1S2 LUNGS/CHEST: CTA B, NORMAL CHEST EXPANSION B, GOOD AIR ENTRY B ABD: SOFT, NTND, GBS, NO REBOUND OR GUARDING EXT/SKIN: Significant bilateral lymphedema with hyperpigmented chronic venous stasis changes, open wound is draining popliteal area MSK: FROM X 4 EXTREMITIES NEURO: CN 2-12 GROSSLY INTACT, NO FOCAL DEFICITS PSY: CALM - Constitutional Vitals: Temp Pulse Resp BP Pulse Ox 97.9 F 54 L 20 163/77 100 03/28/17 09:55 03/28/17 09:55 03/28/17 09:55 03/28/17 09:55 03/28/17 09:55 Plan Activity: up only with assistance, fall precautions, other (no strenous activities until cleared by PCP) Diet: low salt, diabetic Special Instructions: record daily BP diary, record blood sugar diary Follow up with: PRIMARY CARE, [Primary Care Provider] - 3-5 Days Prescriptions: oxyCODONE /ACETAMINOPHEN [Percocet 5/325 mg] 1 tab PO Q6HR PRN #30 tablet PRN Reason: Pain , Severe (7-10)
== END 2017-03-28 18:35 | DRG 602 ==
LOC: ED 11:15 → 3A 15:09
PROVIDERS: ADMIT Internal Medicine; ATTEND Internal Medicine
DX: L03.115 Cellulitis of right lower limb (principal); R53.2 Functional quadriplegia; E44.0 Moderate protein-calorie malnutrition; L97.919 Non-pressure chronic ulcer of unspecified part of right lower leg with unspecified severity; Z68.43 Body mass index [BMI] 50.0-59.9, adult; I10 Essential (primary) hypertension; M19.90 Unspecified osteoarthritis, unspecified site; K21.9 Gastro-esophageal reflux disease without esophagitis; E66.01 Morbid (severe) obesity due to excess calories; E11.9 Type 2 diabetes mellitus without complications; I25.2 Old myocardial infarction; Z87.891 Personal history of nicotine dependence; Z90.710 Acquired absence of both cervix and uterus; Z82.49 Family history of ischemic heart disease and other diseases of the circulatory system; Z83.3 Family history of diabetes mellitus; Z88.5 Allergy status to narcotic agent; Z86.718 Personal history of other venous thrombosis and embolism; Z88.1 Allergy status to other antibiotic agents; Z88.8 Allergy status to other drugs, medicaments and biological substances; Z91.030 Bee allergy status; Z88.2 Allergy status to sulfonamides
CPT/HCPCS: 36415; 80048; 80053; 82962; 83036; 85025; 85027; 85652; 86140; 87040; 93306; 93970; 96365; 96375; G8978-GP; G8979-GP; J0295; J0360; J1200; J1644; J1650; J1815; J2270